=== PATIENT | male | born 1990 | race Caucasian/White ===

== ENCOUNTER 2021-08-17 21:11 | Emergency (ER) | payer OTHER ==
[2021-08-17 23:18] LABS: HEMOGLOBIN 11.9 gm/dl (14.0-17.5); RED BLOOD COUNT 4.15 M/UL (4.20-5.50); WHITE BLOOD COUNT 7.4 K/UL (4.5-11.0)
[2021-08-17 23:44] LABS: BUN/CREATININE RATIO 11 (0-10)
[2021-08-18] MEDS ORDERED: IBUPROFEN800 MG PO (01:23)
[2021-08-18] MEDS ORDERED: COLACE 100MG C100 MG PO (01:23)
== END 2021-08-18 01:45 | disposition home or self-care (01) ==
LOC: ER1 21:11
PROVIDERS: Physician Assistant
DX: R10.32 Left lower quadrant pain (principal); K59.00 Constipation, unspecified; R79.89 Other specified abnormal findings of blood chemistry
CPT/HCPCS: 80053; 81001; 83690; 85025; 99284

== ENCOUNTER → 2021-10-11 | Outpatient (CLI) | payer OTHER ==
[~2021-10-11] MED LIST: COLACE 100MG C100 MG PO; IBUPROFEN800 MG PO
== END ==
LOC: RAD 12:52
DX: S60.222A Contusion of left hand, initial encounter (principal); X58.XXXA Exposure to other specified factors, initial encounter; R93.6 Abnormal findings on diagnostic imaging of limbs
CPT/HCPCS: 73130